=== PATIENT | female | born 1985 | race African-American/Black ===

== ENCOUNTER 2022-07-29 18:26 | Emergency (ER) | payer SELFPAY ==
[~2022-07-29] VITALS: Ht 167.6 cm; Wt 72.2 kg
[2022-07-29 18:28] VITALS: BP 138/68
== END 2022-07-29 20:26 | disposition home or self-care (01) ==
LOC: ER 20:21
DX: R45.851 Suicidal ideations (principal); F10.129 Alcohol abuse with intoxication, unspecified; R45.1 Restlessness and agitation; R00.0 Tachycardia, unspecified; R03.0 Elevated blood-pressure reading, without diagnosis of hypertension; F99 Mental disorder, not otherwise specified; Y90.9 Presence of alcohol in blood, level not specified
CPT/HCPCS: 99283

== ENCOUNTER 2022-09-04 04:25 | Emergency (ER) | payer OTHER ==
[~2022-09-04] VITALS: Ht 167.6 cm; Wt 68.0 kg
[2022-09-04] MEDS ORDERED: MORPHINE SULFATE 4 MG/ML CPJ (NOT FOR IM USE) IV ONE ×2 (05:15→06:30)
[2022-09-04] MEDS ORDERED: ONDANSETRON HCL 4MG/2ML INJ IV ONE ×2 (05:15→09:00)
[2022-09-04 05:45] LABS: BASOPHILS % 0.4 % (0.0-2.0); EOSINOPHILS % 0.1 % (0.0-5.0); HEMATOCRIT. 36.3 % (36.0-48.0); HEMOGLOBIN. 12.6 g/dL (12.0-16.0); LYMPHOCYTES % 21.3 % (20.0-50.0); MEAN CORPUSCULAR HEMOGLOBIN 30.6 pg (28.0-32.0); MEAN CORPUSCULAR VOLUME 88.3 fL (81.0-99.0); MEAN PLATELET VOLUME 7.9 fl (7.4-10.4); MONOCYTES % 5.5 % (2.0-8.0); NEUTROPHILS % 72.7 % (40.0-76.0); PLATELET 269 x1000/uL (130-400); RED BLOOD CELL COUNT 4.11 mill/uL (4.2-5.4); RED CELL DISTRIBUTION WIDTH 15.3 % (11.6-14.6)
[2022-09-04 05:52] LABS: CHLORIDE 110 mEq/L (98-107)
[2022-09-04] MEDS ORDERED: ONDA4TAB50 PO (08:54)
[2022-09-04] MEDS ORDERED: ACET-2708 PO (08:54)
[2022-09-04 10:10] VITALS: BP 118/81
== END 2022-09-04 10:35 | disposition home or self-care (01) ==
LOC: ER 04:25
DX: R10.13 Epigastric pain (principal); F32.A Depression, unspecified
CPT/HCPCS: 36415; 71045; 80053; 81025; 83690; 83880; 84484; 85025; 93005; 96374; 96375; 96376; 99285; J2270; J2405; Z7610

== ENCOUNTER 2023-03-07 12:58 | Emergency (ER) | payer OTHER ==
[~2023-03-07] VITALS: Ht 170.2 cm; Wt 68.0 kg
[~2023-03-07 12:58] MED LIST: ACET-2708 PO; ONDA4TAB50 PO
[2023-03-07 13:05] VITALS: TEMP 98.7; O2SAT 98
[2023-03-07] MEDS ORDERED: ONDANSETRON HCL 4MG/2ML INJ IV STA (13:06)
[2023-03-07 14:10] LABS: BASOPHILS % 0.4 % (0.0-2.0); EOSINOPHILS % 0.3 % (0.0-5.0); HEMATOCRIT. 34.7 % (36.0-48.0); HEMOGLOBIN. 12.1 g/dL (12.0-16.0); LYMPHOCYTES % 15.2 % (20.0-50.0); MEAN CORPUSCULAR HEMOGLOBIN 30.3 pg (28.0-32.0); MEAN CORPUSCULAR HGB CONC 34.9 g/dL (31.0-37.0); MEAN CORPUSCULAR VOLUME 86.8 fL (81.0-99.0); MEAN PLATELET VOLUME 8.1 fl (7.4-10.4); MONOCYTES % 4.1 % (2.0-8.0); PLATELET 256 x1000/uL (130-400)
[2023-03-07 14:47] LABS: HCG SCREEN NEGATIVE
[2023-03-07 14:56] LABS: CHLORIDE 116 mEq/L (98-107); INDEX HEMOLYSI 1 (1-3); INDEX ICTERIC 1 (1-4); INDEX LIPEMIC 1 (1-3); POTASSIUM 3.7 mEq/L (3.5-5.1); SODIUM 140 mEq/L (136-145)
[2023-03-07 15:04] LABS: ACETAMINOPHEN <2 ug/mL ug/mL (10-30); ALANINE AMINOTRANSFERASE 15 IU/L (13-61); ALBUMIN 3.7 g/dL (3.4-5.0); ASPARTATE AMINOTRANSFERASE 16 IU/L (15-37); BILIRUBIN TOTAL 0.3 mg/dL (0.1-1.0); CALCIUM 8.5 mg/dL (8.5-10.1); CARBON DIOXIDE 21 mEq/L (21-32); CREATINE KINASE 135 IU/L (26-192); CREATININE 0.6 mg/dL (0.6-1.3); ETHANOL BLOOD < 10 mg/dL (-10); GLUCOSE 90 mg/dL (70-105); PROTEIN TOTAL 7.3 g/dL (6.0-8.3); UREA NITROGEN BLOOD 7 mg/dL (7-21)
[2023-03-07] MEDS ORDERED: MAGNESIUM/ALUMINUM HYDROXIDE/SIMETHICONE 30ML UDC PO STA (15:04)
[2023-03-07] MEDS ORDERED: METOCLOPRAMIDE HCL 10MG/2ML VIAL IV ONE (15:15)
[2023-03-07] MEDS ORDERED: KETOROLAC 15MG/ML VIAL IV ONE (15:30)
[2023-03-07 15:35] LABS: CLARITY URINE CLOUDY (CLEAR); COLOR URINE YELLOW (YELLOW); GLUCOSE URINE NEGATIVE (NEGATIVE); KETONES URINE NEGATIVE (NEGATIVE); LEUKOCYTE ESTERASE URINE NEGATIVE (NEGATIVE); NITRITE URINE NEGATIVE (NEGATIVE); OCCULT BLOOD URINE NEGATIVE (NEGATIVE); PROTEIN URINE NEGATIVE (NEGATIVE); SPECIFIC GRAVITY URINE 1.017 (1.005-1.030); UROBILINOGEN URINE 0.2 E.U./dL (0.2-1.0)
[2023-03-07 15:38] LABS: SQUAMOUS EPITHELIAL CELL URINE 1+ /lpf (RARE/1+); WBC URINE 0-2 /hpf (0-2); YEAST URINE NONE SEEN
[2023-03-07 15:55] LABS: *AMPHETAMINES SCREEN URINE NEGATIVE (NEGATIVE); *BARBITURATES SCREEN URINE NEGATIVE (NEGATIVE); *COCAINE SCREEN URINE NEGATIVE (NEGATIVE); ECSTASY MDMA SCREEN URINE NEGATIVE (NEGATIVE); METHADONE URINE SCREEN NEGATIVE (NEGATIVE); OPIATES URINE SCREEN NEGATIVE (NEGATIVE); PHENCYCLIDINE URINE SCREEN NEGATIVE (NEGATIVE)
[2023-03-07 16:25] LABS: BACTERIA URINE 2+; RBC URINE 0-2 /hpf (0-2)
[2023-03-07 16:27] LABS: *BENZODIAZEPINES SCREEN URINE PRESUMTIVE POSITIVE (NEGATIVE); CANNABINOID URINE SCREEN PRESUMTIVE POSITIVE (NEGATIVE)
[2023-03-07] MEDS ORDERED: ONDA4TAB50 MT (17:46)
[2023-03-07] MEDS ORDERED: OMEP40CA20 MT (17:46)
[2023-03-07 18:05] VITALS: BP 125/67; PULSE 75; RESP 16
== END 2023-03-07 18:10 | disposition home or self-care (01) ==
LOC: ER 12:58
DX: T40.711A Poisoning by cannabis, accidental (unintentional), initial encounter (principal); Z98.890 Other specified postprocedural states; Y92.9 Unspecified place or not applicable
CPT/HCPCS: 80053; 80305; 81003; 80307; 80329; 80320; 82550; 84703; 83690; 85025; 36415; 74176; 93005; 96374; 96375; 99285; J1885; J2765; J2405; Z7610 ×2; G0480

== ENCOUNTER 2023-10-01 19:42 | Emergency (ER) | payer OTHER ==
[~2023-10-01] VITALS: Ht 170.2 cm; Wt 62.0 kg
[~2023-10-01 19:42] MED LIST changes: +OMEP40CA20 MT; +ONDA4TAB50 MT
[2023-10-01 20:05] VITALS: O2SAT 100
[2023-10-01 20:53] LABS: HEMATOCRIT. 32.5 % (36.0-48.0); HEMOGLOBIN. 11.5 g/dL (12.0-16.0); MEAN CORPUSCULAR HEMOGLOBIN 30.1 pg (28.0-32.0); MEAN CORPUSCULAR HGB CONC 35.3 g/dL (31.0-37.0); MEAN CORPUSCULAR VOLUME 85.4 fL (81.0-99.0); MEAN PLATELET VOLUME 8.3 fl (7.4-10.4); PLATELET 363 x1000/uL (130-400); RED CELL DISTRIBUTION WIDTH 15.3 % (11.6-14.6)
[2023-10-01 20:54] LABS: DIFFERENTIAL COMMENT 1
[2023-10-01 21:02] LABS: INR 1.1; PROTHROMBIN TIME 12.5 sec (9.6-11.0)
[2023-10-01 21:06] LABS: ALANINE AMINOTRANSFERASE 11 IU/L (10-49); ALBUMIN 5.2 g/dL (3.2-4.8); ASPARTATE AMINOTRANSFERASE 21 IU/L (<34); BILIRUBIN TOTAL 0.9 mg/dL (0.1-1.0); CALCIUM 8.9 mg/dL (8.7-10.4); CARBON DIOXIDE 20 mEq/L (21-32); CHLORIDE 108 mEq/L (98-107); CREATININE 0.6 mg/dL (0.6-1.0); GLUCOSE 109 mg/dL (70-105); POTASSIUM 3.2 mEq/L (3.5-5.1); PROTEIN TOTAL 8.5 g/dL (6.0-8.3); SODIUM 137 mEq/L (136-145); UREA NITROGEN BLOOD 11 mg/dL (9-23)
[2023-10-01 21:10] LABS: ANISOCYTOSIS 1+; PLATELET ESTIMATE NORMAL
[2023-10-02] MEDS: HALOPERIDOL LACTATE 5MG/ML VIAL IM ONE (02:38)
[2023-10-02] MEDS: HALOPERIDOL LACTATE 5MG/ML VIAL IM NR (02:41)
[2023-10-02] MEDS ORDERED: TAMS-11 MT (03:48)
[2023-10-02] MEDS ORDERED: ONDA4TAB50 MT (03:48)
[2023-10-02] MEDS ORDERED: IBUP-1523 MT (03:48)
[2023-10-02 04:12] VITALS: BP 118/72; PULSE 83; RESP 16; TEMP 98.2
[2023-10-02] MEDS: ONDANSETRON 4MG ODT PO ONE (04:12)
== END 2023-10-02 04:13 | disposition home or self-care (01) ==
LOC: ER 19:42
DX: R10.9 Unspecified abdominal pain (principal); R11.2 Nausea with vomiting, unspecified; F41.9 Anxiety disorder, unspecified; F32.A Depression, unspecified; F10.20 Alcohol dependence, uncomplicated; Y90.9 Presence of alcohol in blood, level not specified
CPT/HCPCS: 99285; 76705; 80053; 82962; 83690; 85025; 85610; 36415; 74176; 96372; Q0162; J1630

== ENCOUNTER 2024-12-31 07:09 | Inpatient (IN) | payer MEDICAID ==
[~2024-12-31] VITALS: Ht 160 cm; Wt 61.2 kg
[~2024-12-31 07:09] MED LIST changes: +IBUP-1523 MT; +TAMS-54 MT
[2024-12-31 08:07] LABS: BASOPHILS % 0.3 % (0.0-2.0); EOSINOPHILS % 0.2 % (0.0-5.0); HEMATOCRIT. 37.7 % (36.0-48.0); HEMOGLOBIN. 13.5 g/dL (12.0-16.0); LYMPHOCYTES % 16.1 % (20.0-50.0); MEAN PLATELET VOLUME 8.6 fl (7.4-10.4); MONOCYTES % 4.9 % (2.0-8.0); NEUTROPHILS % 78.5 % (40.0-76.0); PLATELET 238 x1000/uL (130-400); RED BLOOD CELL COUNT 4.35 mill/uL (4.2-5.4); RED CELL DISTRIBUTION WIDTH 13.7 % (11.6-14.6)
[2024-12-31] MEDS: ACETAMINOPHEN 325MG TABLET PO ONE (08:08)
[2024-12-31] MEDS: FAMOTIDINE 20MG TABLET PO ONE (08:08)
[2024-12-31] MEDS: HALOPERIDOL LACTATE 5MG/ML VIAL IM ONE (08:08)
[2024-12-31 08:21] LABS: CREATININE 0.7 mg/dL (0.6-1.0); UREA NITROGEN BLOOD 14 mg/dL (9-23)
[2024-12-31 08:23] LABS: ASPARTATE AMINOTRANSFERASE 22 IU/L (<34); BILIRUBIN DIRECT 0.3 mg/dL (<=3.0)
[2024-12-31 08:24] LABS: BILIRUBIN TOTAL 0.9 mg/dL (0.1-1.0); PROTEIN TOTAL 7.8 g/dL (6.0-8.3)
[2024-12-31 09:30] LABS: HCG SCREEN NEGATIVE
[2024-12-31 11:00] VITALS: BP 125/75; PULSE 85; RESP 20; TEMP 36.7
[2024-12-31] MEDS: KETOROLAC 30MG/ML VIAL IV PRN (12:49)
[2024-12-31] MEDS: ONDANSETRON HCL 4MG/2ML INJ IV PRN (12:50)
[2024-12-31 16:00] VITALS: BP 118/71; PULSE 89; RESP 18; TEMP 36.4; O2SAT 98
[2024-12-31] MEDS: LORAZEPAM 1MG TABLET PO PRN (17:28)
[2024-12-31 20:00] VITALS: BP 124/78; PULSE 97; RESP 19; TEMP 36.5; O2SAT 100
[2025-01-01] VITALS: BP 130/67; PULSE 76; RESP 20; TEMP 36.3; O2SAT 100
[2025-01-01] MEDS: ACETAMINOPHEN 325MG TABLET PO PRN (01:35)
[2025-01-01] MEDS: PANTOPRAZOLE 40MG DR TABLET PO SCH (06:08)
[2025-01-01 08:00] VITALS: BP 128/71; PULSE 72; RESP 20; TEMP 36.7; O2SAT 98
[2025-01-01 10:40] VITALS: BP 128/72; PULSE 75; TEMP 98.1; O2SAT 98
[2025-01-01 11:26] LABS: CLARITY URINE CLEAR (CLEAR); COLOR URINE YELLOW (YELLOW); GLUCOSE URINE NEGATIVE (NEGATIVE); KETONES URINE 1+ (NEGATIVE); LEUKOCYTE ESTERASE URINE NEGATIVE (NEGATIVE); NITRITE URINE NEGATIVE (NEGATIVE); OCCULT BLOOD URINE NEGATIVE (NEGATIVE); PH URINE 6.0 (4.5-8.0); PROTEIN URINE TRACE (NEGATIVE); SPECIFIC GRAVITY URINE 1.034 (1.005-1.030); UROBILINOGEN URINE 1.0 E.U./dL (0.2-1.0)
[2025-01-01 11:46] LABS: MUCUS URINE 2+ /lpf (< = 2+); SQUAMOUS EPITHELIAL CELL URINE 3+ /lpf (RARE/1+)
[2025-01-01 11:48] LABS: BACTERIA URINE 2+; RBC URINE 0-2 /hpf (0-2)
== END 2025-01-01 11:15 | disposition home or self-care (01) | DRG 241 ==
LOC: ER 07:09 → 8EST 09:46 → EDBEDREQ 09:50 → EDBEDREQTM 09:50 → ENRESERV 10:13
PROVIDERS: ADMIT Internal Medicine; ATTEND Internal Medicine
DX: K29.20 Alcoholic gastritis without bleeding (principal); F10.90 Alcohol use, unspecified, uncomplicated; F41.9 Anxiety disorder, unspecified; K52.9 Noninfective gastroenteritis and colitis, unspecified; Y90.9 Presence of alcohol in blood, level not specified; Z79.899 Other long term (current) drug therapy; Z71.41 Alcohol abuse counseling and surveillance of alcoholic
CPT/HCPCS: 36415; 76705; 80048; 80076; 81003; 84703; 85025; 99285; A4606; J1630; J1885; J2405